=== PATIENT | male | born 1995 | race Caucasian/White ===

== ENCOUNTER 2016-08-26 21:13 | Emergency (ER) | payer SELFPAY ==
[~2016-08-26] VITALS: Ht 175.3 cm; Wt 62.5 kg
[2016-08-26 21:14] VITALS: BP 119/72
== END 2016-08-26 22:05 | disposition home or self-care (01) ==
LOC: ED 21:48
DX: K08.89 Other specified disorders of teeth and supporting structures (principal)
CPT/HCPCS: 99283